=== PATIENT | female | born 1990 | race Caucasian/White ===

== ENCOUNTER 2018-06-13 10:45 | Emergency (ER) | payer MEDICAID, OTHER ==
[~2018-06-13] VITALS: Ht 167.6 cm; Wt 53.8 kg
[2018-06-13 10:55] VITALS: BP 114/72; PULSE 90; RESP 20; Ht 167.6 cm; Wt 53.8 kg
--- NOTE | 2018-06-13 13:14 | ERD ---
ER Documentation Chief Complaint Chief Complaint Complains of decreased apetite, nausea, vomiting and headache positive preg HPI 28-year-old female, presents to the emergency department, complaining of 2 weeks with nausea, vomiting, decreased appetite and general malaise. The patient had a positive test at home and wants to confirm her . She is , last menstrual period 04/14/18. ROS All systems reviewed and are negative except as per history of present illness. Medications Home Meds Active Scripts [id number] ( 19) 1 Each Tablet, 1 TAB PO DAILY, #30 TAB Prov:RODRIGO GLASS MD 06/13/18 PMhx/Soc Medical and Surgical Hx: pt denies Medical Hx, pt denies Surgical Hx FmHx Family History: No diabetes, No coronary disease Physical Exam Vitals Vital Signs Date Temp Pulse Resp B/P (MAP) Pulse Ox O2 O2 Flow FiO2 Time Delivery Rate 06/13/18 99.5 90 20 114/72 100 10:55 (86) Physical Exam Const: No acute distress Head: Atraumatic Eyes: Normal Conjunctiva ENT: Normal External Ears, Nose and Mouth. Neck: Full range of motion. No meningismus. Resp: Clear to auscultation bilaterally Cardio: Regular rate and rhythm, no murmurs Abd: Soft, non tender, non distended. Normal bowel sounds Skin: No petechiae or rashes Back: No midline or flank tenderness Ext: No cyanosis, or edema Neur: Awake and alert Psych: Normal Mood and Affect Result Diagram: 06/13/18 1325 06/13/18 1325 Results 24 hrs Laboratory Tests Test 06/13/18 12:55 06/13/18 12:57 06/13/18 13:25 Bedside Urine pH (LAB) 7.5 Bedside Urine Protein (LAB) 2+ Bedside Urine Glucose (UA) Negative Bedside Urine Ketones (LAB) Negative Bedside Urine Blood Trace-intact Bedside Urine Nitrite (LAB) Negative Bedside Urine Leukocyte Esterase Trace (L POC Beta HCG, Qualitative POSITIVE White Blood Count 10.7 10^3/ul Red Blood Count 4.91 10^6/ul Hemoglobin 14.5 g/dl Hematocrit 42.9 % Mean Corpuscular Volume 87.4 fl Mean Corpuscular Hemoglobin 29.5 pg Mean Corpuscular 33.8 g/dl Hemoglobin Concent Red Cell Distribution Width 11.7 % Platelet Count 193 10^3/UL Mean Platelet Volume 11.0 fl Immature Granulocytes % 0.300 % Neutrophils % 75.9 % Lymphocytes % 15.0 % Monocytes % 7.3 % Eosinophils % 0.8 % Basophils % 0.7 % Nucleated Red Blood Cells % 0.0 /100WBC Immature Granulocytes # 0.030 10^3/ul Neutrophils # 8.1 10^3/ul Lymphocytes # 1.6 10^3/ul Monocytes # 0.8 10^3/ul Eosinophils # 0.1 10^3/ul Basophils # 0.1 10^3/ul Nucleated Red Blood Cells # 0.0 10^3/ul Sodium Level 142 mmol/L Potassium Level 3.5 mmol/L Chloride Level 101 mmol/L Carbon Dioxide Level 26 mmol/L Anion Gap 15 Blood Urea Nitrogen 13 mg/dl Creatinine 0.52 mg/dl Est Glomerular Filtrat > 60 mL/min Rate mL/min Glucose Level 87 mg/dl Calcium Level 10.1 mg/dl Beta HCG, Quantitative 892756.0 mIU/ml Patient: MIGUEL ÁNGEL GARDNER : 1990 Age: 28 Sex: F MR #: [id number] DOS: 06/13/18 1312 Ordering MD: RODRIGO GLASS MD Location: [facility] Room/Bed: PROCEDURE: US OB. CLINICAL INDICATION: Decreased appetite TECHNIQUE: Transabdominal and endovaginal imaging of the gravid uterus is available for review COMPARISON: None available FINDINGS: There is a single intrauterine demonstrating a heart rate of 166 bpm. The crown-rump length equals 1.3 cm, giving an estimated gestational age of 7 weeks 4 days by ultrasound criteria. A small subchorionic hemorrhage is identified. The ovaries demonstrate a right ovarian corpus luteum cyst. IMPRESSION: 1. Single live intrauterine with an estimated gestational age of 7 weeks 4 days by ultrasound criteria and an estimated date of delivery of 01/26/2019. 2. Small subchorionic hemorrhage. RPTAT: HH .Tami Saavedra MD, MD Date Time Electronically viewed and signed by .Tami Saavedra MD, MD on 06/13/2018 15:05 .G/ CC: RODRIGO GLASS MD Procedures/MDM Vital signs stable, Physical exam unremarkable. Differential diagnosis include but not limited to: UTI, gastroenteritis, viral syndrome, anemia, thyroid disease. Physical examination and clinical presentation most likely consistent with uneventful . During the ED course the patient remained hemodynamically stable and asymptomatic. Results and clinical impression discussed with patient who agrees with management. The patient is stable to be treated outpatient and will be discharged home with close monitoring and follow-up in 2 days with her primary physician. The patient was instructed regarding the outcomes and the potential complications like severe bleeding and . If the patient presents severe bleeding or pain, she was instructed to return to the hospital immediately. Disclaimer: Inadvertent spelling and grammatical errors are likely due to EHR/dictation software use and do not reflect on the overall quality of patient care. Also, please note that the electronic time recorded on this note does not necessarily reflect the actual time of the patient encounter. Departure Diagnosis: Primary Impression: with 7 completed weeks gestation Condition: Stable Additional Instructions: Thank you very much for allowing us to participate in your care. Your health and safety is our top priority at [facility]. Call your primary care doctor TOMORROW for an appointment during the next 2-4 days and bring all the information and medications prescribed. Have prescriptions filled and follow precisely the directions on the label. If the symptoms get worse and your provider is unavailable, return to the Emergency Department immediately. RODRIGO GLASS MD Jun 13, 2018 13:14
[2018-06-13] MEDS ORDERED: PNV11TAB PO (15:20)
== END 2018-06-13 15:30 | disposition home or self-care (01) ==
LOC: FTE 10:45
DX: O21.9 Vomiting of pregnancy, unspecified (principal); O99.89 Other specified diseases and conditions complicating pregnancy, childbirth and the puerperium; R51 Headache; Z3A.01 Less than 8 weeks gestation of pregnancy
CPT/HCPCS: 36415; 76801; 80048; 81003; 81025; 84702; 85025